=== PATIENT | male | born 1965 | race Caucasian/White ===

== ENCOUNTER 2019-11-12 17:50 | Observation (INO) ==
[2019-11-12] MEDS ORDERED: Isovue-370 500 ML BOTTLE IVP ONE (17:55)
[2019-11-12 18:15] LABS: Hematocrit 29.2 % (37.5-50.1); Hemoglobin 7.9 g/dL (12.9-16.9); Mean Corpuscular HGB Conc 27.1 g/dL (31.6-35.5); Mean Corpuscular Hemoglobin 17.7 pg (28.0-33.3); Mean Corpuscular Volume 65.5 fL (83.0-100.0); Red Blood Count 4.46 M/mcL (4.19-5.50)
[2019-11-12 18:17] LABS: Immature Platelets 5.1 % (1.1-6.1); Mean Platelet Volume 10.3 fL (9.4-12.4); Red Cell Distribution Width 18.6 % (11.5-14.5); White Blood Count 6.5 K/mcL (4.3-11.1)
[2019-11-12 18:23] LABS: INR 1.1; Prothrombin Time 12.7 Seconds (9.4-12.1)
[2019-11-12 18:25] LABS: Activated Partial Thrombo Time 31.7 Seconds (26.0-36.0)
[2019-11-12 18:32] LABS: BUN/Creatinine Ratio 14 (6-26); Blood Urea Nitrogen 14 mg/dL (6-20); Calcium 8.9 mg/dL (8.6-10.3); Carbon Dioxide 27 mEq/L (23-29); Chloride 108 mEq/L (98-107); Glucose 114 mg/dL (70-105); Osmolality,Calculated 289 (280-300); Sodium 139 mEq/L (136-145); eGFR For African Americans > 60 (> 60); eGFR For Non-African Americans > 60 (> 60)
[2019-11-12 18:33] LABS: Troponin I < 0.03 ng/mL (< 0.04)
[2019-11-12] MEDS ORDERED: Ondansetron 4 MG/2 ML VIAL IVP PRN (18:43)
[2019-11-12] MEDS ORDERED: Naloxone 0.4 MG/ML INJ IVP PRN (18:43)
[2019-11-12] MEDS ORDERED: Perflutren Lipid Microsphere 1.3 ML in 0.9 % Sodium Chloride 8.7 ML IVP PRN (18:52)
[2019-11-12] MEDS ORDERED: Acetaminophen 325 MG TABLET PO PRN (19:39)
[2019-11-13 02:01] LABS: Basophils # 0.1 K/mcL (0.0-0.2); Eosinophils # 0.4 K/mcL (0.0-0.6); Eosinophils % 6.2 %; Hematocrit 29.7 % (37.5-50.1); Hemoglobin 8.1 g/dL (12.9-16.9); Immature Granulocytes % 0.3 % (0-4); Immature Platelets 4.4 % (1.1-6.1); Lymphocytes # 1.9 K/mcL (0.6-4.6); Lymphocytes % 30.1 %; Mean Corpuscular HGB Conc 27.3 g/dL (31.6-35.5); Monocytes # 0.7 K/mcL (0.0-1.3); Monocytes % 10.5 %; Neutrophils # 3.3 K/mcL (1.6-8.9); Platelet Count 249 K/mcL (140-400); Red Cell Distribution Width 18.6 % (11.5-14.5); Segmented Neutrophils % 51.9 %; White Blood Count 6.3 K/mcL (4.3-11.1)
[2019-11-13 02:18] LABS: BUN/Creatinine Ratio 12 (6-26); Blood Urea Nitrogen 13 mg/dL (6-20); Calcium 8.8 mg/dL (8.6-10.3); Carbon Dioxide 26 mEq/L (23-29); Chloride 108 mEq/L (98-107); Glucose 92 mg/dL (70-105); Magnesium 2.1 mg/dL (1.6-2.6); Osmolality,Calculated 288 (280-300); Phosphorous 3.9 mg/dL (2.7-4.5); Sodium 139 mEq/L (136-145); eGFR For African Americans > 60 (> 60); eGFR For Non-African Americans > 60 (> 60)
[2019-11-13 02:19] LABS: Chol/HDL Ratio 4.7 (0-4.9)
[2019-11-13 02:22] LABS: % Iron Saturation 2 % (20-55); Iron 12 mcg/dL (65-175); Transferrin 384 mg/dL (203-362)
[2019-11-13 02:34] LABS: Anisocytosis 1+ (Not Present); Microcytosis Present (Not Present)
[2019-11-13 02:35] LABS: Hypochromasia Present (Not Present); Platelet Estimate Normal (Normal)
[2019-11-13 02:42] LABS: Folate 15.4 ng/mL (3.0-16.0)
[2019-11-13 03:12] LABS: Ferritin < 8 ng/mL (20-250)
[2019-11-13 07:48] LABS: Bilirubin,Urine Negative (Negative); Blood,Urine Negative (Negative); Clarity,Urine Clear (Clear); Color,Urine Light-Yellow (Yellow); Glucose,Urine (UA) Normal (Normal); Ketones,Urine Negative (Negative); Leukocyte Esterase,Urine Negative (Negative); Nitrite,Urine Negative (Negative); Protein,Urine Negative (Neg-Trace); Specific Gravity,Urine > 1.030 (1.010-1.025); Urobilinogen,Urine Normal (Normal)
[2019-11-13 08:34] LABS: Amphetamine Screen,Urine Negative ng/mL (Cutoff=1000); Barbiturate Screen,Urine Negative ng/mL (Cutoff=200); Benzodiazepines Screen,Urine Negative ng/mL (Cutoff=200); Cannabinoid Screen,Urine Negative ng/mL (Cutoff = 50); Cocaine Screen,Urine Negative ng/mL (Cutoff= 300); Opiate Screen,Urine Negative ng/mL (Cutoff=300); Phencyclidine Screen,Urine Negative ng/mL (Cutoff=25)
[2019-11-13] MEDS ORDERED: Iron Sucrose Complex 400 MG in 0.9 % Sodium Chloride 250 ML IVPB SCH (09:00)
[2019-11-13] MEDS ORDERED: Aspirin 81 MG TAB.CHEW PO SCH (09:00)
[2019-11-13] MEDS ORDERED: predniSONE 20 MG TABLET PO SCH (10:29)
[2019-11-13] MEDS ORDERED: valACYclovir 500 MG TABLET PO SCH (10:45)
[2019-11-13 10:49] VITALS: BP 154/71
== END 2019-11-13 14:36 | disposition home or self-care (01) ==
LOC: 3BNU 17:50 → EMEROOARM 17:50 → 3BNU 20:30
PROVIDERS: ADMIT Student in an Organized Health Care Education/Training Program; ATTEND Student in an Organized Health Care Education/Training Program